=== PATIENT | male | born 1945 ===

== ENCOUNTER 2016-08-31 14:43 | Observation (INO) | payer MEDICARE, BC ==
--- NOTE | 2016-08-31 15:33 | ED PDOC ---
Arrival/HPI - General Chief Complaint: Dizziness/Lightheaded Time Seen by Provider: 08/31/16 14:52 Historian: Patient - History of Present Illness Narrative History of Present Illness (Text): 08/31/16 15:28 A 71 year old male presents to the emergency room with complaints of lightheadedness since this morning. Patient also notes intermittent palpitations. Patient was sent by his commercial hvac service technician for the evaluation of new EKG changes. Patient denies any chest pain, shortness of breath, headaches, nausea, vomiting, diarrhea, or any other complaints. Time/Duration: 4-6 hours Symptom Onset: Sudden Symptom Course: Unchanged Activities at Onset: Light Context: Home Past Medical History - Provider Review Nursing Documentation Reviewed: Yes - Cardiac Hx Hypertension: Yes - Endocrine/Metabolic Hx Diabetes Mellitus Type 2: (border line) - Gastrointestinal Hx Gastrointestinal Disorders: No - Genitourinary/Gynecological Hx Genitourinary Disorders: No - Psychiatric Hx Substance Use: No - Anesthesia Hx Anesthesia: No Family/Social History - Physician Review Nursing Documentation Reviewed: Yes Family/Social History: No Known Family HX Smoking Status: Current Some Days Smoker Hx Alcohol Use: No Hx Substance Use: No Allergies/Home Meds Allergies/Adverse Reactions: Allergies No Known Allergies Allergy (Verified 08/31/16 15:05) Home Medications: Home Meds Medication Instructions Recorded Confirmed Albuterol Sulfate [Proair Hfa] 0.09 mg IH QID 08/31/16 08/31/16 Amoxicillin 875 mg PO BID 08/31/16 08/31/16 Bisacodyl [Ducolax] 5 mg PO DAILY 08/31/16 08/31/16 Colchicine 0.6 mg PO BID 08/31/16 08/31/16 Losartan [Cozaar] 50 mg PO DAILY 08/31/16 08/31/16 Pentosan Polysulfate Sodium 100 mg PO DAILY 08/31/16 08/31/16 [Elmiron] Polyethylene Glycol 3350 [Miralax] 17 gm PO DAILY 08/31/16 08/31/16 Promethazine DM [Phenergan DM 5 ml PO TID 08/31/16 08/31/16 Syrup] Simvastatin 10 mg PO DAILY 08/31/16 08/31/16 Tamsulosin [Flomax] 0.4 mg PO DAILY 08/31/16 08/31/16 metFORMIN [glucOPHAGE] 500 mg PO BID 08/31/16 08/31/16 Physical Exam - Physical Exam Narrative Physical Exam (Text): 08/31/16 15:33 - Review of Systems Constitutional: Normal. absent: Fatigue, Weight Change, Fevers Eyes: Normal ENT: Normal Respiratory: Normal absent: SOB, Cough, Sputum Cardiovascular: Palpitations absent: Chest pain, Syncope Gastrointestinal: Normal absent: Abdominal pain, Diarrhea, Nausea, Vomiting Genitourinary: Normal. absent: Dysuria, Frequency, Hematuria Musculoskeletal: Normal. absent: Arthralgias, Back Pain, Neck Pain Skin: Normal Neurological: Lightheadedness absent: Focal Weakness Endocrine: Normal Hemo/Lymphatic: Normal Psychiatric: Normal - Physical exam Patient appears age appropriate, speaking full sentences without difficulty - Systems Exam Head: Present: Atraumatic, Normocephalic Pupils: Present: PERRL Extraocular Muscles: Present: EOMI Conjunctiva: Present: Normal Mouth: Present: Moist Mucous Membranes Neck: Present: Normal Range of Motion. No: MIDLINE TENDERNESS, Paraspinal Tenderness Respiratory/Chest: Present: Clear to Auscultation, Good Air Exchange. No: Respiratory Distress, Accessory Muscle Use, Tachypneic Cardiovascular: Present: Regular Rate and Rhythm, Normal S1, S2, Peripheral Pulses Present. No: Murmurs Abdomen: Present: Normal Bowel Sounds, No: Tenderness, Peritoneal Signs, Rebound, Guarding, Distention Back: Present: Normal Inspection. No: Midline Tenderness, Paraspinal Tenderness Upper Extremity: Present: Normal Inspection. No: Cyanosis, Edema Lower Extremity: Present: Normal Inspection. No: Edema Neurological: Present: GCS=15, Speech Normal, cranial nerves II through XII fully intact with no cerebellar abnormality, neuro-sensory fully intact. No focal neurological deficits. Skin: Present: Warm, Dry, Normal Color. No: Rashes Lymphatic: Present: OX3, NI, NC Psychiatric: Present: Alert, Oriented x 3, Normal Insight, Normal Concentration Vital Signs Reviewed: Yes Vital Signs Temp Pulse Resp BP Pulse Ox 08/31/16 15:11 97.4 F L 68 20 136/87 100 08/31/16 14:52 98.6 F 66 18 155/98 H 98 Temperature: Afebrile Blood Pressure: Hypertensive Pulse: Regular Respiratory Rate: Normal Appearance: Positive for: Well-Appearing, Non-Toxic, Comfortable Pain Distress: None Mental Status: Positive for: Alert and Oriented X 3 Finger Stick Blood Glucose: 90 Medical Decision Making ED Course and Treatment: 08/31/16 15:35 Impression: A 71 year old male with lightheadedness and intermittent palpitations. No acute findings on examination. Plan: -- EKG -- Chest X-ray -- Labs -- Aspirin -- Reassess and disposition Progress Notes: EKG: Ordered, reviewed, and independently interpreted the EKG. Rate : 64 BPM Rhythm : NSR Interpretation : No ST-segment elevations, normal axis, normal intervals. Interpreted by me. Comparison : No previous EKG for comparison. CXR Impression: As read by me, no active disease. 08/31/16 17:[address] Kincaid, who agrees with plan for admission. Saw pt in the ED. Patient also agrees with plan. - Lab Interpretations Lab Results: 08/31/16 16:05 08/31/16 16:05 Lab Results 08/31/16 16:05: Sodium 138, Potassium 4.2, Chloride 105, Carbon Dioxide 24, Anion Gap 13, BUN 17, Creatinine 1.0, Est GFR ( Amer) > 60, Est GFR (Non- Af Amer) > 60, Random Glucose 94, Calcium 9.3, Total Bilirubin 0.7, AST 37, ALT 46, Alkaline Phosphatase 43, Lactate Dehydrogenase 480, Total Creatine Kinase 46 , Troponin I < 0.01, NT-Pro-B Natriuret Pep 109, Total Protein 7.6, Albumin 4.0 , Globulin 3.6, Albumin/Globulin Ratio 1.1 08/31/16 16:05: PT 11.3, INR 1.05, APTT 26.4 08/31/16 16:05: WBC 4.6, RBC 4.71, Hgb 14.4, Hct 40.5 L, MCV 86.0, MCH 30.6, MCHC 35.6, RDW 12.8, Plt Count 238, MPV 9.9, Gran % 51.8, Lymph % (Auto) 36.8 H , Mcduffie % (Auto) 8.1 H, Eos % (Auto) 3.1, Baso % (Auto) 0.2, Gran # 2.36, Lymph # 1.7, Mcduffie # 0.4, Eos # 0.1, Baso # 0.01 08/31/16 15:07: POC Glucose (mg/dL) 90 I have reviewed the lab results: Yes - RAD Interpretation Radiology Orders: 08/31/16 15:06 CHEST PORTABLE [RAD] Stat - Medication Orders Current Medication Orders: Discontinued Medications Aspirin (Aspirin Chewable) 324 mg PO STAT STA Stop: 08/31/16 15:07 Last Admin: 08/31/16 16:14 Dose: 324 mg - Scribe Statement The provider has reviewed the documentation as recorded by the Nba Villagran Provider Neeruibe Attestation: All medical record entries made by the Nba were at my direction and personally dictated by me. I have reviewed the chart and agree that the record accurately reflects my personal performance of the history, physical exam, medical decision making, and the department course for this patient. I have also personally directed, reviewed, and agree with the discharge instructions and disposition. Disposition/Present on Arrival - Present on Arrival Any Indicators Present on Arrival: No History of DVT/PE: No History of Uncontrolled Diabetes: No Urinary Catheter: No History of Decub. Ulcer: No History Surgical Site Infection Following: Orthopedic Procedures - Disposition Have Diagnosis and Disposition been Completed?: Yes Diagnosis: Palpitations Disposition: HOSPITALIZED Disposition Time: 18:21 Patient Plan: Admission Condition: FAIR Referrals: Buffy Christopher MD [Primary Care Provider] - Follow up with primary
--- NOTE | 2016-08-31 15:38 | RAD ---
HISTORY: cough COMPARISON: None available. TECHNIQUE: Chest, one view. FINDINGS: Examination limited by habitus. LUNGS: No focal consolidation. Please note that chest x-ray has limited sensitivity for the detection of pulmonary masses. PLEURA: No significant pleural effusion identified. No definite pneumothorax . CARDIOVASCULAR: Heart size appears top normal. Ectatic aorta. Atherosclerotic calcifications. OSSEOUS STRUCTURES: No acute osseous abnormality identified. VISUALIZED UPPER ABDOMEN: Unremarkable. OTHER FINDINGS: None. IMPRESSION: No focal consolidation, significant pleural effusion, or definite pneumothorax identified.
[2016-08-31 16:18] LABS: ADD MANUAL DIFF? NO
[2016-08-31 16:28] LABS: BASO # 0.01 K/mm3 (0.0-2.0); BASO % 0.2 % (0.0-3.0); EOS # 0.1 (0.0-0.7); EOS % 3.1 % (1.5-5.0); GRAN # 2.36 (1.4-6.5); GRAN % 51.8 % (50.0-68.0); HEMATOCRIT 40.5 % (42.0-52.0); LYMPH # 1.7 (1.2-3.4); LYMPH % 36.8 % (22.0-35.0); MEAN CORPUSCULAR HEMOGLOBIN 30.6 pg (25.0-35.0); MEAN CORPUSCULAR HGB CONC 35.6 g/dl (31.0-37.0); MEAN PLATELET VOLUME 9.9 fl (7.0-11.0); MONO # 0.4 (0.1-0.6); MONO % 8.1 % (1.0-6.0); PLATELET COUNT 238 10^3/uL (120.0-450.0); RED CELL DISTRIBUTION WIDTH 12.8 % (11.5-14.5); WHITE BLOOD COUNT 4.6 10^3/ul (4.5-11.0)
[2016-08-31 16:31] LABS: ALB/GLOB RATIO 1.1 (1.1-1.8); ALKALINE PHOSPHATASE 43 U/L (38-133); ALT/SGPT 46 U/L (7-56); AST/SGOT 37 U/L (15-59); BILIRUBIN,TOTAL 0.7 mg/dL (0.2-1.3); BLOOD UREA NITROGEN 17 mg/dL (7-21); CALCIUM 9.3 mg/dL (8.4-10.5); CARBON DIOXIDE 24 mmol/L (21-33); CHLORIDE 105 mmol/L (98-107); GFR AFRICAN-AMERICAN > 60; GLUCOSE,RANDOM 94 mg/dL (70-110); POTASSIUM 4.2 mmol/L (3.6-5.0); SODIUM 138 mmol/L (132-148); TOTAL PROTEIN 7.6 g/dL (5.8-8.3)
[2016-08-31 16:33] LABS: INR 1.05 (0.93-1.08); PARTIAL THROMBOPLASTIN TIME 26.4 Seconds (23.7-30.8)
[2016-08-31 16:45] LABS: TROPONIN I < 0.01 ng/mL
[2016-09-01 00:41] VITALS: BMI 30.7
[2016-09-01] MEDS ORDERED: Albuterol 0.083% Inhal Sol (2.5 mg/3 mL) UD IH SCH (07:30)
[2016-09-01 07:53] LABS: HEMATOCRIT 40.6 % (42.0-52.0); MEAN CELL VOLUME 86.9 fL (80.0-105.0); MEAN CORPUSCULAR HGB CONC 34.5 g/dl (31.0-37.0); MEAN PLATELET VOLUME 9.6 fl (7.0-11.0); WHITE BLOOD COUNT 5.3 10^3/ul (4.5-11.0)
[2016-09-01 08:01] LABS: BLOOD UREA NITROGEN 17 mg/dL (7-21); CALCIUM 9.3 mg/dL (8.4-10.5); CARBON DIOXIDE 29 mmol/L (21-33); CHLORIDE 104 mmol/L (98-107); CHOLESTEROL 145 mg/dL (130-200); GFR AFRICAN-AMERICAN > 60; GLUCOSE,RANDOM 111 mg/dL (70-110); SODIUM 141 mmol/L (132-148)
[2016-09-01 08:21] LABS: TROPONIN I < 0.01 ng/mL
--- NOTE | 2016-09-01 09:39 | HP ---
CHIEF COMPLAINT: Dizziness, lightheadedness. HISTORY OF PRESENT ILLNESS: The patient is a 71-year-old male with past medical history of upper respiratory tract infection, hypertension, diabetes mellitus, came to [facility] with dizziness, lightheadedness. According to patient, he was having upper respiratory tract infection, got antibiotics and treatment from the doctor. Now, he started intermittent palpitations. The patient was seen by the datastage architect for the evaluation of new EKG changes. The patient denies any fever, chills, nausea, vomiting, diarrhea or any other complaints. PAST MEDICAL HISTORY: Hypertension, diabetes mellitus. FAMILY HISTORY: Father and mother noncontributory. HABITS: Currently smoking, no alcohol, no substance abuse. ALLERGIES: The patient is not allergic with any medications. HOME MEDICATIONS: Albuterol, amoxicillin, bisacodyl, colchicine, Cozaar, MiraLax, Phenergan, simvastatin, Flomax, Glucophage. REVIEW OF SYSTEMS: The patient was seen and examined in the ER. Still having lightheadedness and dizziness. I spoke to ER to do orthostatic. No fever, no chills. Absent fatigue, weight changes. No coughing, no sputum. Has palpitations, sometimes chest pain, but no syncope. Has lightheadedness. No abdominal pain, diarrhea, nausea or vomiting. No dysuria, frequency, hematuria. No arthralgia, no back pain, no neck pain, no focal weakness. PHYSICAL EXAMINATION: VITAL SIGNS: Temperature 97.4, pulse 68, respiratory rate 20, blood pressure 136/87, pulse oximetry 100%. HEENT: Head normocephalic, atraumatic. Eyes: PERRLA. Extraocular muscles intact. Conjunctivae pink. Eyelids unremarkable. Nose patent. NECK: Supple. No carotid bruit, JVD or thyromegaly. CHEST: Bilaterally symmetrical. HEART: S1, S2 positive. LUNGS: Clear to auscultation. ABDOMEN: Soft. Bowel sounds positive. No organomegaly. EXTREMITIES: No edema, no cyanosis. NEUROLOGIC: The patient is awake, alert, moving all 4 extremities. No focal deficit. LABORATORY DATA: White blood cells 4.6, hemoglobin 14.4, hematocrit 40.5, platelets 238. Sodium 138, potassium 4.2, BUN 17, creatinine 1.0, glucose is 94. ASSESSMENT AND PLAN: The patient is a 71-year-old male, extreme lightheadedness , palpitation, seen in Emergency Room with diagnosis of palpitation. Orthostatic done by Emergency Room. The patient has history of hypertension, diabetes mellitus, looks like history of gouty arthritis, constipation, hypercholesterolemia, benign prostatic hypertrophy, has history of upper respiratory tract infection, got treatment from his doctor and saw datastage architect who sent him in [facility] for abnormal EKG. We admitted the patient. Cardiology consult called. Cardiac enzymes x 3 ordered. The patient was complaining about sleeping problem, Ambien given. Aspirin started, colchicine started. Losartan given for blood pressure. For benign prostatic hypertrophy, tamsulosin given, put on sliding scale. We will follow up. Roopa Kincaid MD cc: [id number] TT: 09/01/2016 09:38:30 bradford BERRY
[2016-09-01] MEDS ORDERED: POLYETHYLENE GLYCOL 3350 17 GM/Dose PACKET PO SCH (10:00)
[2016-09-01] MEDS ORDERED: Sodium Chloride 0.9% 1,000 ML IV SCH (10:00)
[2016-09-01] MEDS ORDERED: Bisacodyl 5mg EC Tab PO SCH (10:00)
[2016-09-01] MEDS ORDERED: PENTOSAN POLYSULFATE SODIUM 100 MG PO SCH (10:00)
[2016-09-01] MEDS: Promethazine DM 6.25 mg-15 mg/5 ml Syrup PO SCH ×2 (11:08→14:19)
[2016-09-01] MEDS: Insulin Reg-LOW-Coverage SC SCH ×3 (11:11→16:52)
--- NOTE | 2016-09-01 11:24 | PN ---
DATE: 09/01/2016 REASON FOR CONSULTATION AND FOLLOWUP: Cardiac evaluation, dizziness, lightheaded. BRIEF CLINICAL HISTORY: This is a 71-year-old male with a past medical history of flu-like symptoms, upper respiratory tract infection, sore throat for 1 week, was on antibiotic. Ultimately, the patie nt recovered,. Yesterday, the patient stood up and felt a little dizzy, went to the PMD office, did EKG and said probably suggest to the patient to go to the Emergency Room and does not want to take th e chance. The patient denies any chest pain, denies any shortness of breath, denies any palpitation. PAST MEDICAL HISTORY: Significant for diabetes, hypertension, hyperlipidemia. Recent cardiac workup: According to the patient, the patient had a stress test and echo 2 weeks ago in [facility] cardiology at his office. Denies any chest pain, shortness of breath, any pa lpitation. SOCIAL HISTORY: Smokes cigar. No history of alcohol abuse. No history of substance abuse. ALLERGIES: Not allergic to any medications. CURRENT MEDICATIONS: The patient just finished amoxicillin course, albuterol, bisacodyl, colchicine, Cozaar, MiraLax, Phenergan, simvastatin and Flomax and Glucophage. REVIEW OF SYSTEMS: A 14-point review of systems: Denies any chest pain, palpitation except as per H PI, lightheaded and dizziness. Denies any chest pain. PHYSICAL EXAMINATION: VITAL SIGNS: Temperature afebrile, heart rate 64, blood pressure 134/77. HEENT: PERRLA. Extraocular muscles intact. NECK: Supple. No carotid bruits. No thyromegaly. CHEST: Clear to auscultation. HEART: S1, S2 regular. ABDOMEN: Soft. EXTREMITIES: Clubbing and cyanosis negative. LABORATORY DATA: Blood workup as follows: WBC 5.3, hemoglobin 14, hematocrit 40.0, platelet count 2 26. Chemistry shows sodium 141, potassium 5.0, chloride 104, carbon dioxide 29, anion gap of 13, BUN 17, creatinine 1.1, glucose 118. Triglycerides 169. Cholesterol 145, LDL 75, HDL 30. TSH 2.31. T roponin 0.01. IMPRESSION: Atypical chest pain, history of a stress test recently, history of flu-like symptoms, up per respiratory tract infection, was on antibiotic for 1 week. Possibly dehydration that causes the patient's little dizziness on standing. So far no evidence of myocardial infarction. RECOMMENDATION: We will get lipid profile, TSH, hemoglobin A1c. Will do orthostatic hypotension. G nadine gentle hydration and if the patient remains stable, possible discharge in a day or 2. No further cardiac workup is warranted because patient had recently stress test and echo done in [facility] and was told that everything was okay. We will follow with you. Unless the patient's conditi on change, we will follow with you. Thank you, Dr. Kincaid, for providing the opportunity in taking care of the patient. Potassium from went up, so we will potassium in the morning. If the potassium keeps on increasing, then wi ll change losartan to some other antihypertensive medication. We will follow with you. Jane Orozco MD cc: [facility] TT: 09/01/2016 11:23:30 Confirmation # [id number] Dictation # [id number] tn
--- NOTE | 2016-09-01 14:07 | CARD ---
APPROVED REPORT EKG Measurement Heart [id number] <Conclusion> Normal sinus rhythm Left anterior fascicular block Nonspecific T wave abnormality Abnormal ECG
[2016-09-01 17:34] VITALS: BP 163/86; PULSE 67; RESP 16; TEMP 98; O2SAT 98
--- NOTE | 2016-09-01 18:34 | PN ---
DATE: 09/01/2016 SUBJECTIVE: The patient was seen and examined on the bedside, looks comfortable. No nausea, vomiting, or diarrhea. No hematuria or hematochezia. No swelling of the leg. No chest pain, no palpitation, no headache, no dizziness, no dysuria. PHYSICAL EXAMINATION: VITAL SIGNS: Temperature 98.1, pulse 80, blood pressure 131/88, respiratory rate 20. HEENT: Head normocephalic, atraumatic. Eyes PERRLA. Extraocular muscles intact. Conjunctivae pink. Eyelids unremarkable. Nose patent. Mucous membranes moist. NECK: Supple. No carotid bruit, JVD or thyromegaly. CHEST: Bilaterally symmetrical. HEART: S1, S2 positive. LUNGS: Clear to auscultation. ABDOMEN: Soft. Bowel sounds present. No organomegaly. EXTREMITIES: No edema, no cyanosis. NEUROLOGIC: The patient is awake, alert, moving all 4 extremities. No focal deficits. MEDICATIONS: Reviewed by me. LABORATORY DATA: White blood cell count 5.3, hemoglobin 14.0, hematocrit 40.6, and platelets 226. Sodium 141, potassium 5.0, BUN 70, creatinine 1.1, glucose 124, 118. ASSESSMENT AND PLAN: The patient is a 71-year-old male with hyperglycemia, hypertriglyceridemia, came with chest pain, seen by the club director, Dr. Orozco, history of diabetes mellitus, hypertension, hypercholesterolemia, has atypical chest pain. History of stress test recently, history of flu-like symptoms, upper respiratory tract infection and was antibiotics for 1 week, possibly dehydration. The patient is a little dizziness now as he is standing. So far no evidence of myocardial infarction. The patient got gentle hydration. According to cardiology, no further cardiac workup is warranted because the patient had recently [facility] and was told that everything was okay. Dr. Orozco discontinued telemetry. The patient has hypokalemia, now improved. 2 sets of cardiac enzymes are less than 0.01. We will do third set of cardiac enzymes. If third set of cardiac enzymes is negative, then patient can be discharged home if cleared by the club director and will follow up in my office on Saturday. The patient will do follow up with primary care physician. Continue home medications. Roopa Kincaid MD cc: [id number] TT: 09/01/2016 18:33:59 Confirmation # [id number] Dictation # [id number] MTDD
--- NOTE | 2016-09-12 08:07 | DS ---
CHIEF COMPLAINT: Dizziness, lightheadedness. HISTORY OF PRESENT ILLNESS: The patient is a 71-year-old male with a past medical history of upper respiratory infection, hypertension, hypercholesterolemia, diabetes mellitus, with dizziness, lightheadedness. According to patient, he was having upper respiratory tract infection, got antibiotics and treatment from doctor and now he started intermittent palpitation. The patient was cleared by the cryptographic center specialist for this admission for gc. The patient denies any fever or chills, but patient came to Emergency Room. We admitted the patient , Seen by cryptographic center specialist Dr. Orozco, who cleared the patient for discharge because troponin was negative and needs workup over as outpatient. PAST MEDICAL HISTORY: Hypertension, diabetes mellitus. FAMILY HISTORY: Father and mother noncontributory. HABITS: Currently smoking, no alcohol, no substance abuse, no drugs. ALLERGIES: The patient is not allergic with any medications. HOME MEDICATIONS: noted by me. REVIEW OF SYSTEMS: VITAL SIGNS: Temperature 98.0, pulse 67, blood pressure 120/86, respiratory rate 16. HEENT: Head normocephalic, atraumatic. Eyes PERRLA. Extraocular muscles intact. Conjunctivae clear. Nose patent. Mucous membranes moist. NECK: Supple. No carotid bruit, JVD or thyromegaly. CHEST: Bilaterally symmetrical. HEART: S1, S2 positive. LUNGS: Clear to auscultation. ABDOMEN: Soft. Bowel sounds positive. No organomegaly. EXTREMITIES: No edema, no cyanosis. NEUROLOGIC: The patient awake, alert, moving all 4 extremities. No focal deficit. For more details, see my progress notes of 09/01/16. The patient will follow up with primary care physician medicines given. Roopa Kincaid MD cc: [id number] TT: 09/11/2016 16:07:55 sn MTDD
== END 2016-09-01 18:32 | disposition home or self-care (01) ==
LOC: ED 14:43 → ERH 18:21 → 2RSO 22:04
PROVIDERS: ADMIT Internal Medicine; ATTEND Internal Medicine
DX: R07.89 Other chest pain (principal); R00.2 Palpitations; E86.0 Dehydration; E11.9 Type 2 diabetes mellitus without complications; E78.00 Pure hypercholesterolemia, unspecified; E78.1 Pure hyperglyceridemia; E78.5 Hyperlipidemia, unspecified; E87.6 Hypokalemia; F17.290 Nicotine dependence, other tobacco product, uncomplicated; I10 Essential (primary) hypertension; M10.00 Idiopathic gout, unspecified site; N40.0 Benign prostatic hyperplasia without lower urinary tract symptoms; Z79.899 Other long term (current) drug therapy; J06.9 Acute upper respiratory infection, unspecified; K59.00 Constipation, unspecified
CPT/HCPCS: 36415; 71010; 80048; 80053; 80061; 82550; 82948; 83036; 83615; 83880; 84443; 84484; 85025; 85027; 85610; 85730; 93005; 94640; 99285; G0378; J7040